=== PATIENT | male | born 2005 | race Caucasian/White ===

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

== ENCOUNTER 2023-06-23 07:38 | Emergency (ER) | payer SELFPAY ==
--- NOTE | 2023-06-23 07:57 | ED Physician Documentation ---
PD HPI BACK PAIN - Stated complaint Stated Complaint: BACK PX,WEAK - Chief complaint Chief Complaint: Back Pain - History obtained from History obtained from: Patient - History of Present Illness Timing - onset: Yesterday Timing - details: Gradual onset, Still present (worsening today) Location: Lower, Right, Left Quality: Pain, Spasm (He states his back gave out and collapsed when he had worse pain episodes this morning. No consistent weakness or numbness in the legs.) Associated symptoms: No: Weakness, Numbness, Incontinent of urine Contributing factors: No: Trauma (He is not aware of a particular injury. 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 No notable heavy lifting. No recent fall or impact. No fevers or rash. Normal bowel and bladder function.) Similar symptoms before: Has not had sx before Recently seen: Not recently seen Review of Systems Constitutional: denies: Fever, Chills Nose: reports: Rhinorrhea / runny nose, Congestion (ongoing due to allergies, no recent increase.) : denies: Incontinent Skin: denies: Rash, Lesions Neurologic: denies: Focal weakness, Numbness PD PAST MEDICAL HISTORY - Past Medical History Past Medical History: Yes Cardiovascular: None Respiratory: None Neuro: None Endocrine/Autoimmune: None GI: None : None HEENT: None Psych: None Musculoskeletal: Chronic back pain Derm: None - Past Surgical History Past Surgical History: Yes HEENT: Myringotomy (tubes) - Present Medications Home Medications: Ambulatory Orders Medication Instructions Recorded Confirmed HYDROcod/ACETAM 5/325 [[place] 5/325] 1 ea PO Q6H PRN #18 tablet 06/23/23 Naproxen 500 mg PO BID #20 tab 06/23/23 tiZANidine [Zanaflex] 4 mg PO Q8H PRN #25 tablet 06/23/23 - Allergies Allergies/Adverse Reactions: Allergies Allergy/AdvReac Type Severity Reaction Status Date / Time No Known Drug Allergies Allergy Verified 06/23/23 07:43 - Social History Does the pt smoke?: No Smoking Status: Never smoker Does the pt drink ETOH?: Yes Does the pt have substance abuse?: Yes Substance Use and Type: Marijuana - Immunizations Immunizations are current?: Yes Immunizations: Other immun not current PD ED PE NORMAL - Vitals Vital signs reviewed: Yes - General General: Alert and oriented X 3, Well developed/nourished, Other (appears uncofmrotable with movement. ) - Abdomen Abdomen: Soft, Non tender - Back Back: Other (Tender in the lower lumbar paravertebral muscles. No particular trigger point palpable but generally muscle tender.) - Derm Derm: Normal color, Warm and dry - Extremities Extremities: No edema, No calf tenderness / cord - Neuro Neuro: No motor deficit, No sensory deficit Results - Vitals Vitals: Vital Signs - 24 hr 06/23/23 07:43 Temperature 36.7 C Heart Rate 86 Respiratory 18 Rate Blood Pressure 137/85 H O2 Saturation 96 Oxygen O2 Source Room air PD Medical Decision Making - ED course Complexity details: considered differential (Gradual onset and worsening in the low back with spasms. No neuro symptoms. No red flags to suggest need for testing or imaging. We will treat empirically per back pain guidelines with medications and have him do stretching and movement.), d/w patient Departure - Departure Clinical Impression: Acute myofascial strain of lumbar region Condition: Stable Record reviewed to determine appropriate education?: Yes Instructions: ED Spasm Back No Trauma Prescriptions: Naproxen 500 mg PO BID #20 tab HYDROcod/ACETAM 5/325 [[place] 5/325] 1 ea PO Q6H PRN #18 tablet PRN Reason: Pain tiZANidine [Zanaflex] 4 mg PO Q8H PRN #25 tablet PRN Reason: Spasms Comments: Minimal activity for the next few days. I provided a work note if you need 1 for 3 days. Gentle stretching and heat to the low back as tolerated. We typically treat low back pain episodes like this with a combination of physical modalities such as heat stretching massage chiropractic etc. Topical lidocaine patches or such sometimes are helpful. Then medication of anti-inflammatories such as naproxen or ibuprofen combined with muscle relaxants. I wrote a prescription for tizanidine. To that add Tylenol 500 to 650 mg 4 times daily for pain or hydrocodone/acetaminophen if needed for worse pain. This would be intended short-term. Back pain episodes like this typically will be the worst for a few days and taper down but may take even a week or 2 to fully improve. Activity as tolerated during that time and progressively increased to more normal activity. Recheck if not improved over the next several days and resolving over the next week or so. Return if worse. I sent your prescriptions to the [facility] in [place]. I am prescribing a short course of narcotic pain medication for you. These are potentially dangerous and addictive medications that should be used carefully. These medications may constipate you. Take an bryt-miq-uwjzvoq stool softener such as docusate twice daily with plenty of water while taking these medications. If you go 24 hours without a bowel movement, take txlq-xrv-smahufo MiraLAX, per package instructions. Do not drink or drive while taking these medications. If you received narcotic or sedating medications while in the emergency department do not drive for 24 hours. Store this medication in a safe, secure place and out of reach of children. It is a violation of federal law to give or sell this medication to another person or to use in a manner other than prescribed. The ED will not refill narcotic prescriptions, including prescriptions lost or stolen. You can dispose of unwanted medications at the [facility]'s office or at several pharmacies such as [facility]. Forms: Activity restrictions
[2023-06-23] MEDS ORDERED: KETOROLAC 30 MG/ML VIAL IM STA (08:18)
[2023-06-23] MEDS ORDERED: HYDROcod/ACETAM 5/325 MG TABLET PO STA (08:18)
[2023-06-23] MEDS ORDERED: methocarbamoL 500 MG TABLET PO STA (08:22)
[2023-06-23 08:35] VITALS: BP 116/68; O2SAT 97
== END 2023-06-23 08:46 | disposition home or self-care (01) ==
LOC: ED 07:38
DX: S39.012A Strain of muscle, fascia and tendon of lower back, initial encounter (principal); X58.XXXA Exposure to other specified factors, initial encounter
CPT/HCPCS: 96372; 99283; A9270

== ENCOUNTER 2023-06-27 09:18 | Emergency (ER) | payer SELFPAY ==
[2023-06-27 09:33] VITALS: BP 131/80; O2SAT 98
--- NOTE | 2023-06-27 11:46 | ED Physician Documentation ---
PD HPI BACK PAIN - Stated complaint Stated Complaint: BACK PX,LEG/GROIN PX - Chief complaint Chief Complaint: Back Pain - History obtained from History obtained from: Patient - Additional information Additional information: Otherwise healthy 18-year-old gentleman has had back pain for about 12 days now. It is atraumatic and associated with intermittent leg weakness. When he sitting down he also feels some radiation of the pain to the groin. He denies constant weakness, any numbness, saddle anesthesia, fevers, or incontinence. He was seen by my partner a few days ago and prescribed medications which she really does not think are helping, that said he has not been able to take them regularly due to driving and work. PD PAST MEDICAL HISTORY - Past Medical History Past Medical History: Yes Cardiovascular: None Respiratory: None Neuro: None Endocrine/Autoimmune: None GI: None : None HEENT: None Psych: None Musculoskeletal: Chronic back pain Derm: None - Past Surgical History Past Surgical History: Yes HEENT: Myringotomy (tubes) - Present Medications Home Medications: Ambulatory Orders Medication Instructions Recorded Confirmed HYDROcod/ACETAM 5/325 [[place] 5/325] 1 ea PO Q6H PRN #18 tablet 06/23/23 Naproxen 500 mg PO BID #20 tab 06/23/23 tiZANidine [Zanaflex] 4 mg PO Q8H PRN #25 tablet 06/23/23 Oxycodone HCl/Acetaminophen 1 - 2 each PO Q6H PRN #14 tablet 06/27/23 [Percocet 5-325 mg Tablet] predniSONE [Deltasone] 20 mg PO [id number] #21 tab 06/27/23 - Allergies Allergies/Adverse Reactions: Allergies Allergy/AdvReac Type Severity Reaction Status Date / Time No Known Drug Allergies Allergy Verified 06/27/23 09:26 - Social History Does the pt smoke?: No Smoking Status: Never smoker Does the pt drink ETOH?: Yes Does the pt have substance abuse?: Yes - Immunizations Immunizations are current?: Yes Immunizations: Other immun not current PD ED PE NORMAL - Vitals Vital signs reviewed: Yes - General General: Alert and oriented X 3, Other (Winces with motion and position changes) - Abdomen Abdomen: Soft, Non tender - Extremities Extremities: Other (The patient has equal and normal Achilles and patellar reflexes bilaterally. Normal sensation in all areas of the legs. Patient denies saddle anesthesia. Normal strength in flexion-extension at the ankles, knees, and flexion of the hips.) - Neuro Neuro: Alert and oriented X 3, Normal speech Results - Vitals Vitals: Vital Signs - 24 hr 06/27/23 09:23 Temperature 36.4 C L Heart Rate 75 Respiratory 20 Rate Blood Pressure 131/80 H O2 Saturation 98 Oxygen O2 Source Room air PD Medical Decision Making - ED course ED course: This patient has seemingly uncomplicated musculoskeletal back pain. The patient has no "red flags." Specifically denies IV drug use, fevers, incontinence, saddle anesthesia. Spinal epidural abscess was considered, given that the patient has no fever, is not diabetic, has no spinal tenderness, does not use IV drugs, and has no bilateral neurologic symptoms, the diagnosis of spinal epidural abscess is considered exceedingly unlikely. Departure - Departure Disposition: 01 Home, Self Care Clinical Impression: Acute myofascial strain of lumbar region Qualifiers: Encounter type: initial encounter Qualified Code(s): S39.012A - Strain of muscle, fascia and tendon of lower back, initial encounter Condition: Good Record reviewed to determine appropriate education?: Yes Instructions: ED Spasm Back No Trauma, ED Neck Back Pain General Prescriptions: predniSONE [Deltasone] 20 mg PO [id number] #21 tab Oxycodone HCl/Acetaminophen [Percocet 5-325 mg Tablet] 1 - 2 each PO Q6H PRN #14 tablet PRN Reason: pain Comments: I sent your prescriptions electronically to [facility] in [place]. As discussed, the next steps for you would be to follow-up with a primary care physician and enroll in physical therapy, if after 2 months or so that is ineffective then an MRI would be in order, but most cases of back pain will resolve before that time. I am prescribing a short course of narcotic pain medication for you. These are potentially dangerous and addictive medications that should be used carefully. These medications may constipate you. Take an kiru-yap-vjesybv stool softener (docusate) twice daily with plenty of water while taking these medications. If you go 24 hours without a bowel movement, take xkza-pqm-bkfipva miralax, per package instructions. Do not drink or drive while taking these medications. If you received narcotic or sedating medications while in the emergency department, do not drive for 24 hours. Store this medication in a safe, secure place and out of reach of children. It is a violation of federal law to give or sell this medication to another person or to use in a manner other than prescribed. The ED will not refill narcotic prescriptions, including prescriptions lost or stolen. To dispose of unwanted medications: 1. [facility] provides a drop box for medication in pill form only (no liquids) 8:00 am to 4:30 p.m. Friday-Friday in the lobby of the [facility], [address] [place] [address]. Empty pills into ziplock bag before disposal. Call [phone] for information. 2.[employer] is a free service available to all [facility] residents. Go to https://[email or web address]/locations/[place]/ Note that many narcotic pain relievers also contain Tylenol/acetaminophen. P lease ensure that your total dose of acetaminophen from all sources does not exceed 3 g (3000 mg) per day. Forms: PCP List, Activity restrictions
== END 2023-06-27 12:07 | disposition home or self-care (01) ==
LOC: ED 09:18
DX: S39.012A Strain of muscle, fascia and tendon of lower back, initial encounter (principal); X58.XXXA Exposure to other specified factors, initial encounter
CPT/HCPCS: 99282; 99283

== ENCOUNTER 2023-07-21 08:58 | Emergency (ER) | payer BC ==
[2023-07-21 09:08] VITALS: BP 142/84; O2SAT 97
--- NOTE | 2023-07-21 09:48 | ED Physician Documentation ---
PD HPI HEENT - Stated complaint Stated Complaint: RT EAR RINGING - Chief complaint Chief Complaint: Heent - History obtained from History obtained from: Patient - Additional information Additional information: 18-year-old male presents for ringing in his right ear. He states that last night he went to bed like normal and this morning when he woke up he noticed mild pain and significant ringing in his ear. Denies use of Q-tips, denies recent trauma or instrumentation. States that he has been hunting in the past and is not always good about wearing ear protection. Denies recent concerts, earbud use, other loud noise exposure. Review of Systems Constitutional: denies: Fever, Chills Eyes: denies: Loss of vision, Decreased vision, Photophobia Ears: reports: Tinnitus/ringing. denies: Loss of hearing, Ear pain Nose: denies: Rhinorrhea / runny nose, Congestion Throat: denies: Dental pain / toothache, Oral lesions / sores, Sore throat PD PAST MEDICAL HISTORY - Past Medical History Past Medical History: No Cardiovascular: None Respiratory: None Neuro: None Endocrine/Autoimmune: None GI: None : None HEENT: None Psych: None Musculoskeletal: Chronic back pain Derm: None - Past Surgical History Past Surgical History: Yes HEENT: Myringotomy (tubes) - Present Medications Home Medications: Ambulatory Orders Medication Instructions Recorded Confirmed No Known Home Medications 07/21/23 07/21/23 - Allergies Allergies/Adverse Reactions: Allergies Allergy/AdvReac Type Severity Reaction Status Date / Time No Known Drug Allergies Allergy Verified 06/27/23 09:26 - Social History Does the pt smoke?: No Smoking Status: Never smoker Does the pt drink ETOH?: Yes Does the pt have substance abuse?: Yes - Immunizations Immunizations are current?: Yes Immunizations: Other immun not current PD ED PE NORMAL - Vitals Vital signs reviewed: Yes - General General: Alert and oriented X 3, No acute distress, Well developed/nourished - HEENT HEENT: Atraumatic, PERRL, EOMI, Other (external ear normal bilaterally. Earwax impaction R ear. TM normal L ear) - Cardiac Cardiac: RRR - Respiratory Respiratory: No respiratory distress, Clear bilaterally - Abdomen Abdomen: Soft, Non tender, Non distended - Derm Derm: Normal color, Warm and dry, No rash - Extremities Extremities: No deformity, No tenderness to palpate, Normal ROM s pain - Neuro Neuro: Alert and oriented X 3, instrument maker and repairer 2-12 intact, Normal speech - Psych Psych: Normal mood, Normal affect Results - Vitals Vitals: Vital Signs - 24 hr 07/21/23 09:05 Temperature 37 C Heart Rate 78 Respiratory 20 Rate Blood Pressure 142/84 H O2 Saturation 97 Oxygen O2 Source Room air PD Medical Decision Making - ED course Complexity details: reviewed results, re-evaluated patient, considered differential, d/w patient ED course: Tinnitus of right ear. On initial exam of the right ear there was found to be earwax impaction. This was irrigated by nursing staff with removal of earwax burden. Repeat exam of the tympanic membrane shows what appeared to be calcifications over the tympanic membrane. No evidence of TM rupture. There appeared to be some surrounding loose skin, however when attempting to remove the loose skin the patient complained of pain and the attempt was aborted. Patient was advised to limit his exposure to loud noises, to avoid inserting anything into his external ear canal, and to follow-up with ear nose and throat doctor. Patient states that he has seen ear nose and throat previously in [place] due to previous ear issues. Departure - Departure Disposition: 01 Home, Self Care Clinical Impression: Tinnitus Qualifiers: Laterality: right Qualified Code(s): H93.11 - Tinnitus, right ear Condition: Stable Instructions: Tinnitus Follow-Up: Neil Cerrato MD [Physician No Access] - Forms: PCP List Discharge Date/Time: 07/21/23 10:35
== END 2023-07-21 10:35 | disposition home or self-care (01) ==
LOC: ED 08:58
DX: H93.11 Tinnitus, right ear (principal); H92.01 Otalgia, right ear; H61.21 Impacted cerumen, right ear; H73.891 Other specified disorders of tympanic membrane, right ear
CPT/HCPCS: 69209; 99282; 99283